=== PATIENT | male | born 1960 | race Caucasian/White ===

== ENCOUNTER 2019-01-31 13:22 | Emergency (ER) | payer OTHER ==
[~2019-01-31] VITALS: Ht 188 cm; Wt 93.0 kg
[~2019-01-31 13:22] MED LIST: ALBIPROI INH; ASPI81EC PO; BUSP15 PO; BUSPAR; CLON.5 PO; Cipro500 MG PO; DULO30 PO; IBUP600 PO; LISI5 PO; LOSARTAN; MECL25 PO; NAPR500 PO; NIAC250ER PO; NITR.4SL SL; NORTRIPTYLLINE; Omeprazole20 M1; TOCO1000 PO; TRAM50 PO; VARE1 PO
[2019-01-31] MEDS ORDERED: BUSP10 PO (13:47)
[2019-01-31] MEDS ORDERED: Neurontin 100100 MG PO (13:47)
[2019-01-31] MEDS ORDERED: OMEPRAZOLE20 MG PO (13:47)
[2019-01-31] MEDS ORDERED: LOSARTAN-HCTZ1 EAC1 PO (13:47)
[2019-01-31] MEDS ORDERED: Nortriptyline H50 MG PO (13:48)
[2019-01-31] MEDS ORDERED: POLY500 PO (13:49)
[2019-01-31] MEDS ORDERED: FISH OIL 1,001000 MG PO (13:49)
[2019-01-31] MEDS ORDERED: DICL75ER PO (13:49)
[2019-01-31] MEDS ORDERED: [UNRECOGNIZED DRUG - OTHER] PO (13:49)
[2019-01-31 14:03] LABS: BASOPHILS ABSOLUTE AUTO 0.09 K/mm3 (0.00-0.23); BASOPHILS PERCENT AUTO 1 % (0-2); EOSINOPHILS ABSOLUTE AUTO 0.13 K/mm3 (0.00-0.68); EOSINOPHILS PERCENT AUTO 2 % (0-6); Hematocrit 44.4 % (37.0-53.0); Hemoglobin 14.7 g/dL (13.5-17.5); IMMATURE GRAN ABSOLUTE AUTO 0.01 K/mm3 (0.00-0.10); IMMATURE GRAN PERCENT AUTO 0 % (0-1); LYMPHOCYTES ABSOLUTE AUTO 2.06 K/mm3 (0.84-5.20); LYMPHOCYTES PERCENT AUTO 25 % (21-46); MONOCYTES ABSOLUTE AUTO 0.53 K/mm3 (0.16-1.47); MONOCYTES PERCENT AUTO 6 % (4-13); Mean Corpuscular HGB 27.1 pg (26.0-34.0); Mean Corpuscular HGB Conc 33.1 g/dL (31.5-36.5); Mean Corpuscular Volume 82 fL (80-100); Mean Platelet Volume 10.6 fL (9.1-12.4); NEUTROPHILS ABSOLUTE AUTO 5.55 K/mm3 (1.96-9.15); NEUTROPHILS PERCENT AUTO 66 % (41-73); Platelet Count 317 K/mm3 (150-400); RDW Standard Deviation 41.4 fL (35.1-46.3); Red Blood Cell Count 5.42 M/mm3 (4.30-5.90); White Blood Cell Count 8.37 K/mm3 (4.00-11.30)
[2019-01-31 14:22] LABS: Alanine Aminotransfer (ALT/SGP 62 U/L (12-78); Albumin, Blood 4.2 g/dL (3.4-5.0); Albumin/Globulin Ratio 1.2 (0.8-1.8); Alk Phos 102 U/L (50-136); Anion Gap 6 mmol/L (6-16); Aspartate Aminotrans (AST/SGOT 22 U/L (12-37); Bilirubin, Total 0.3 mg/dL (0.1-1.0); Blood Urea Nitrogen 12 mg/dL (8-24); Bun/Creatinine Ratio 11.7 (12.0-20.0); CO2, Blood 27 mmol/L (21-32); Calcium, Blood 9.2 mg/dL (8.5-10.1); Chloride, Blood 107 mmol/L (98-108); Creatinine, Blood 1.03 mg/dL (0.60-1.20); Globulin, Blood 3.4 g/dL (2.2-4.0); Glomerular Filtration Rate >60 (60-); Glucose, Blood 87 mg/dL (70-99); Potassium, Blood 3.9 mmol/L (3.5-5.5); Sodium, Blood 140 mmol/L (136-145); Total Protein, Blood 7.6 g/dL (6.4-8.2); Troponin I <0.015 ng/mL (0.000-0.040)
[2019-01-31] MEDS ORDERED: Nitrostat0.4 MG SL (16:35)
== END 2019-01-31 16:48 | disposition home or self-care (01) ==
LOC: ER 13:22
PROVIDERS: Physician Assistant
DX: R20.0 Anesthesia of skin (principal); I10 Essential (primary) hypertension; F32.9 Major depressive disorder, single episode, unspecified; F17.210 Nicotine dependence, cigarettes, uncomplicated; Z88.0 Allergy status to penicillin; Z88.2 Allergy status to sulfonamides; Z91.048 Other nonmedicinal substance allergy status; Z88.8 Allergy status to other drugs, medicaments and biological substances; Z79.899 Other long term (current) drug therapy; Z79.82 Long term (current) use of aspirin
CPT/HCPCS: 36415; 71046; 80053; 84484; 85025; 93005; 93010; 96360; 96361; 99285-25; J7030

== ENCOUNTER 2019-06-24 17:58 | Observation (INO) | payer OTHER ==
[~2019-06-24] VITALS: Ht 182.9 cm; Wt 99.3 kg
[~2019-06-24 17:58] MED LIST changes: -ASPI81EC PO; -DULO30 PO; +FISH OIL 1,001000 MG PO; -NITR.4SL SL; +Nitrostat0.4 MG SL; +POLY500 PO; +[UNRECOGNIZED DRUG - OTHER] PO
[2019-06-24 18:20] LABS: BASOPHILS ABSOLUTE AUTO 0.09 K/mm3 (0.00-0.23); BASOPHILS PERCENT AUTO 1 % (0-2); EOSINOPHILS ABSOLUTE AUTO 0.12 K/mm3 (0.00-0.68); EOSINOPHILS PERCENT AUTO 1 % (0-6); Hematocrit 43.2 % (37.0-53.0); Hemoglobin 14.3 g/dL (13.5-17.5); IMMATURE GRAN ABSOLUTE AUTO 0.02 K/mm3 (0.00-0.10); IMMATURE GRAN PERCENT AUTO 0 % (0-1); LYMPHOCYTES ABSOLUTE AUTO 1.91 K/mm3 (0.84-5.20); LYMPHOCYTES PERCENT AUTO 22 % (21-46); MONOCYTES ABSOLUTE AUTO 0.47 K/mm3 (0.16-1.47); MONOCYTES PERCENT AUTO 5 % (4-13); Mean Corpuscular HGB 27.7 pg (26.0-34.0); Mean Corpuscular HGB Conc 33.1 g/dL (31.5-36.5); Mean Corpuscular Volume 84 fL (80-100); Mean Platelet Volume 10.1 fL (9.1-12.4); NEUTROPHILS PERCENT AUTO 70 % (41-73); Platelet Count 316 K/mm3 (150-400); RDW Coefficient Variation 12.7 % (11.7-14.2); RDW Standard Deviation 38.7 fL (35.1-46.3); Red Blood Cell Count 5.17 M/mm3 (4.30-5.90); White Blood Cell Count 8.71 K/mm3 (4.00-11.30)
[2019-06-24 18:37] LABS: Alanine Aminotransfer (ALT/SGP 47 U/L (12-78); Albumin, Blood 3.9 g/dL (3.4-5.0); Albumin/Globulin Ratio 1.1 (0.8-1.8); Alk Phos 92 U/L (50-136); Anion Gap 6 mmol/L (6-16); Aspartate Aminotrans (AST/SGOT 21 U/L (12-37); Bilirubin, Total 0.4 mg/dL (0.1-1.0); Blood Urea Nitrogen 14 mg/dL (8-24); Bun/Creatinine Ratio 13.5 (12.0-20.0); CO2, Blood 26 mmol/L (21-32); Chloride, Blood 105 mmol/L (98-108); Creatinine, Blood 1.04 mg/dL (0.60-1.20); Globulin, Blood 3.5 g/dL (2.2-4.0); Glomerular Filtration Rate >60 (60-); Glucose, Blood 106 mg/dL (70-99); Potassium, Blood 3.7 mmol/L (3.5-5.5); Sodium, Blood 137 mmol/L (136-145); Total Protein, Blood 7.4 g/dL (6.4-8.2); Troponin I <0.015 ng/mL (0.000-0.040)
[2019-06-24] MEDS ORDERED: DULO30 PO (19:34)
[2019-06-24] MEDS ORDERED: Aspir 8181 MG PO (19:35)
[2019-06-24] MEDS ORDERED: NITR.4SL SL (19:36)
[2019-06-24] MEDS ORDERED: GABA300 PO (19:36)
[2019-06-24] MEDS ORDERED: LOSA50 PO (19:37)
[2019-06-24] MEDS ORDERED: OMEPRAZOLE20 MG PO (19:37)
[2019-06-24] MEDS ORDERED: Nortriptyline H50 MG PO (19:38)
[2019-06-24] MEDS ORDERED: DICL75ER PO (19:38)
[2019-06-24] MEDS ORDERED: BUSP10 PO ×2 (19:38→19:39)
[2019-06-24] MEDS ORDERED: HYDCHL25 PO (19:39)
[2019-06-24] MEDS ORDERED: ATOR40TA PO (19:40)
[2019-06-24] MEDS ORDERED: Butalbital-Asa1 EAC1 PO (19:41)
[2019-06-24 20:20] LABS: CHOL/HDL RATIO 6.9; Cholesterol 241 mg/dL (50-200); HDL Cholesterol 35 mg/dL (>39); LDL/HDL RATIO 4.3; Low Density Lipoprotein Chol 149 mg/dL (0-110); Triglycerides 284 mg/dL (30-160); Very Low Density Lipoprot Chol 56 mg/dL (6-32)
[2019-06-24 20:37] LABS: Source, Urine Voided
[2019-06-24 20:48] LABS: Bilirubin, Urine Neg (Neg); Blood, Urine Neg (Neg); Glucose Qualitative, Urine Neg (Neg); Ketones, Urine Neg (Neg); Leukocyte Esterase, Urine Neg (Neg); Nitrite, Urine Neg (Neg); Protein, Urine Neg (Neg); Specific Gravity, Urine 1.015 (1.003-1.022); Urobilinogen, Urine NORM (Normal)
[2019-06-24 20:49] LABS: Appearance, Urine Clear (Clear); Color, Urine Yellow (P-Yellow)
--- NOTE | 2019-06-25 12:31 | NUR ---
Echocardiogram completed.
--- NOTE | 2019-06-25 13:02 | NUR ---
1300 PATIENT UP TO THE RESTROOM, VOIDED, ASSISTED WITH PATIENT PARTIALLY DRESSING SINCE HE IS LIMITED WITH NO USE OF THE RIGHT ARM AT THIS TIME. PATIENT BACK TO RECLINER AND BACK ON THE MONITOR.
[2019-06-25] MEDS ORDERED: METO50ER PO (13:46)
--- NOTE | 2019-06-25 15:12 | NUR ---
PT DRESSED, IV DC'D INTACT, R RADIAL TR BAND REMOVED, DRESSING PLACED, R WRIST SPLINT PLACED, PT DC'D BY WC BY THIS RN WITH FAMILY DRIVING PT HOME
== END 2019-06-25 10:28 | disposition home or self-care (01) ==
LOC: ER 17:58 → ERHOLD 17:59
PROVIDERS: Emergency Medicine; ADMIT Family Medicine
PROC: B2151ZZ Fluoroscopy of Left Heart using Low Osmolar Contrast (ICD-10-PCS; principal; 2019-06-25)
PROC: B2111ZZ Fluoroscopy of Multiple Coronary Arteries using Low Osmolar Contrast (ICD-10-PCS; principal; 2019-06-25)
PROC: 4A023N7 Measurement of Cardiac Sampling and Pressure, Left Heart, Percutaneous Approach (ICD-10-PCS; principal; 2019-06-25)
DX: I25.110 Atherosclerotic heart disease of native coronary artery with unstable angina pectoris (principal); E78.5 Hyperlipidemia, unspecified; M79.7 Fibromyalgia; G62.9 Polyneuropathy, unspecified; I10 Essential (primary) hypertension; K21.9 Gastro-esophageal reflux disease without esophagitis; G43.109 Migraine with aura, not intractable, without status migrainosus; E78.00 Pure hypercholesterolemia, unspecified; F41.9 Anxiety disorder, unspecified; F32.9 Major depressive disorder, single episode, unspecified; Z79.1 Long term (current) use of non-steroidal anti-inflammatories (NSAID); Z79.82 Long term (current) use of aspirin; Z79.899 Other long term (current) drug therapy; Z87.891 Personal history of nicotine dependence; Z88.0 Allergy status to penicillin; Z88.2 Allergy status to sulfonamides; Z88.3 Allergy status to other anti-infective agents; Z88.8 Allergy status to other drugs, medicaments and biological substances; Z91.048 Other nonmedicinal substance allergy status
CPT/HCPCS: 36415; 71045; 80053; 80061; 81003; 83880; 84484; 85025; 85347; 85730; 93005; 93010; 93308; 93321; 93458; 93571; 96361; 96365; 96366; 96375; 99152; 99153; 99285-25; A9270; A9270-GY; C1769; C1887; C1894; G0378; J0171; J1200; J1644; J2250; J2405; J3010; J7030; J7512; Q9967

== ENCOUNTER 2020-01-05 05:53 | Day surgery (SDC) | payer OTHER ==
[~2020-01-05] VITALS: Ht 185.4 cm; Wt 104.0 kg
[~2020-01-05 05:53] MED LIST changes: +AMLO10 PO; +ATOR40TA PO; +Aspir 8181 MG PO; +BUSP10 PO; +Butalbital-Asa1 EAC1 PO; +DIAZ10; +DICL75ER PO; +DULO30 PO; +GABA300; +GABA300 PO; +HYDCHL25 PO; +LOSA50 PO; +METO50ER PO; +NITR.4SL SL; +Nortriptyline H50 MG PO; +OMEP20ER PO; +OMEPRAZOLE20 MG PO
--- NOTE | 2020-01-05 17:33 | NUR ---
SHIFT NOTE PT [facility]IVED [facility] THIS AFTERNOON POST PACER ICD PLACEMENT TO LT CHEST WALL. PT IS SLING. PT REPORTS INTCHING TO SITE, SOME REDNESS NOTED PT REPORTS HX OF TAPE ALLERGY, DR WATERMAN IS CONSULTED ABOUT CHANGING DRESSING, DRESSING IS CHANGED WITHOUT ANY COMPLICATIONS. PT HAS REQUIRED PAIN MEDCIATION X2 FOR THIS SHIFT FOR ACHING PAIN. VSS. PT 100% PACED AT 60BPM ON MONITOR
--- NOTE | 2020-01-06 06:02 | NUR ---
SHIFT SUMMARY PT WAS EXPERIANCING CHF SYMPTOMS WITH 4+ EDEMA IN LOWER RIGHT LEG, LEFT LEG WAS AKA. ARMS SHOWED 3+ PITTING EDEMA, ALL EXTREMITIES WERE COOL TO TOUCH. MOVEMENT IN LEG WAS SIGNIFICANTLY LIMITED, ULCERS ON RIGHT FOOT. PT HAD ELEVATED BP BUT WAS CORRECTED WITH ORDERED MEDS. PT WAS ON BIPAP SATTING AROUND 85-90%, SWITCHED TO NC AT 2LPM AND SATS REMAINED AROUND 95%. PT STATED PAIN ON RIGHT LEG AT IO SITE. PT WAS ABLE TO EAT CRACKERS AND A SANDWICH, DIET WAS ADVANCED. BED IN LOWEST POSITION, CALL LIGHT IN REACH. WILL CONTINUE TO MONITOR UNTIL SHIFT CHANGE.
--- NOTE | 2020-01-06 06:22 | NUR ---
SHIFT SUMMARY PT WAS STABLE POST DUAL CHAMBER PACER PLACED IN PCU, PT RHYTHM WAS AROUND 75BPM AND PACED T/O SHIFT. PT STATED ITCHING AROUND INCISION SITE DUE TO SENSITIVITY FROM TAPE/ADHESIVE. DRESSING WAS RECENTLY CHANGED AND ITCHING SUBSIDED MILDLY AND PT RECIEVED BENYDRYL AND ITCHING STOPPED PER PT. PT STATED MILD PAIN AT INCISION SITE WITH INCREASED PAIN WITH MOVEMENT. DRESSING REMAIND CLEANDRY AND INTACT T/O SHIFT. BED IN LOWEST POSITION, CALL LIGHT WITHIN REACH, WILL CONTINUE TO MONITOR UNTIL SHIFT CHANGE.
[2020-01-06] MEDS ORDERED: Norco 5-325 Ta1 EACH PO (13:04)
== END 2020-01-06 13:37 | disposition home or self-care (01) ==
LOC: MHTC 05:53 → PCU 08:53 → MHTC 01-06 13:37
DX: I49.8 Other specified cardiac arrhythmias (principal); R55 Syncope and collapse; I44.1 Atrioventricular block, second degree; Z88.0 Allergy status to penicillin; Z88.2 Allergy status to sulfonamides; Z88.8 Allergy status to other drugs, medicaments and biological substances; Z91.041 Radiographic dye allergy status; Z91.040 Latex allergy status; Z87.891 Personal history of nicotine dependence; E78.5 Hyperlipidemia, unspecified; K21.9 Gastro-esophageal reflux disease without esophagitis; I11.9 Hypertensive heart disease without heart failure; F32.9 Major depressive disorder, single episode, unspecified; F41.9 Anxiety disorder, unspecified; Z79.899 Other long term (current) drug therapy; I47.1 Supraventricular tachycardia; I25.10 Atherosclerotic heart disease of native coronary artery without angina pectoris
CPT/HCPCS: 33249; 71045; 71046; 76937; 99152; 99153; A9270-GY; C1721; C1894; C1895; C1898; J1200; J1644; J1720; J2250; J3010; J3370; J7030; J7040; J7050; Q0163

== ENCOUNTER 2021-06-06 13:33 | Emergency (ER) | payer OTHER ==
[~2021-06-06] VITALS: Ht 185.4 cm; Wt 99.8 kg
[~2021-06-06 13:33] MED LIST changes: +Norco 5-325 Ta1 EACH PO
[2021-06-06 14:01] LABS: BASOPHILS ABSOLUTE AUTO 0.07 K/mm3 (0.00-0.23); BASOPHILS PERCENT AUTO 1 % (0-2); EOSINOPHILS ABSOLUTE AUTO 0.13 K/mm3 (0.00-0.68); EOSINOPHILS PERCENT AUTO 2 % (0-6); Hematocrit 44.9 % (37.0-53.0); Hemoglobin 14.6 g/dL (13.5-17.5); IMMATURE GRAN PERCENT AUTO 0 % (0-1); LYMPHOCYTES ABSOLUTE AUTO 1.82 K/mm3 (0.84-5.20); LYMPHOCYTES PERCENT AUTO 33 % (21-46); MONOCYTES ABSOLUTE AUTO 0.41 K/mm3 (0.16-1.47); MONOCYTES PERCENT AUTO 8 % (4-13); Mean Corpuscular HGB Conc 32.5 g/dL (31.5-36.5); Mean Corpuscular Volume 83 fL (80-100); Mean Platelet Volume 11.4 fL (9.1-12.4); NEUTROPHILS ABSOLUTE AUTO 3.02 K/mm3 (1.96-9.15); NEUTROPHILS PERCENT AUTO 55 % (41-73); Platelet Count 258 K/mm3 (150-400); RDW Coefficient Variation 13.6 % (11.7-14.2); RDW Standard Deviation 41.1 fL (35.1-46.3); Red Blood Cell Count 5.41 M/mm3 (4.30-5.90); White Blood Cell Count 5.45 K/mm3 (4.00-11.30)
[2021-06-06 14:19] LABS: Alanine Aminotransfer (ALT/SGP 32 U/L (12-78); Albumin, Blood 4.2 g/dL (3.4-5.0); Albumin/Globulin Ratio 1.2 (0.8-1.8); Alk Phos 97 U/L (50-136); Anion Gap 4 mmol/L (6-16); Aspartate Aminotrans (AST/SGOT 11 U/L (12-37); Bilirubin, Total 0.4 mg/dL (0.1-1.0); Blood Urea Nitrogen 19 mg/dL (8-24); Bun/Creatinine Ratio 18.6 (12.0-20.0); CO2, Blood 23 mmol/L (21-32); Calcium, Blood 9.2 mg/dL (8.5-10.1); Chloride, Blood 112 mmol/L (98-108); Creatinine, Blood 1.02 mg/dL (0.60-1.20); Globulin, Blood 3.5 g/dL (2.2-4.0); Glomerular Filtration Rate >60 (60-); Glucose, Blood 104 mg/dL (70-99); Sodium, Blood 139 mmol/L (136-145); Total Protein, Blood 7.7 g/dL (6.4-8.2)
[2021-06-06 14:53] LABS: Source, Urine Clean Catch
[2021-06-06 15:12] LABS: Appearance, Urine Clear (Clear); Bilirubin, Urine Neg (Neg); Blood, Urine Neg (Neg); Color, Urine Yellow (P-Yellow); Glucose Qualitative, Urine Neg (Neg); Ketones, Urine Neg (Neg); Leukocyte Esterase, Urine Neg (Neg); Nitrite, Urine Neg (Neg); Protein, Urine Neg (Neg); Urobilinogen, Urine NORM (Normal)
== END 2021-06-06 16:14 | disposition home or self-care (01) ==
LOC: ER 13:33
PROVIDERS: Physician Assistant
DX: R10.9 Unspecified abdominal pain (principal); I10 Essential (primary) hypertension; E78.00 Pure hypercholesterolemia, unspecified; I25.10 Atherosclerotic heart disease of native coronary artery without angina pectoris; Z87.891 Personal history of nicotine dependence; Z79.82 Long term (current) use of aspirin; Z79.899 Other long term (current) drug therapy
CPT/HCPCS: 36415; 74176; 80053; 81003; 83690; 85025; 96374; 96375; 99284-25; J2270; J2405; J7030

== ENCOUNTER 2022-02-12 12:49 | Observation (INO) | payer OTHER ==
[~2022-02-12] VITALS: Ht 185.4 cm; Wt 98.9 kg
[~2022-02-12 12:49] MED LIST changes: -LOSA50 PO; +LOSARTAN POTAS100 M1 PO
[2022-02-12 13:38] LABS: BASOPHILS ABSOLUTE AUTO 0.06 K/mm3 (0.00-0.23); BASOPHILS PERCENT AUTO 1 % (0-2); EOSINOPHILS ABSOLUTE AUTO 0.13 K/mm3 (0.00-0.68); EOSINOPHILS PERCENT AUTO 2 % (0-6); Hematocrit 42.8 % (37.0-53.0); Hemoglobin 14.1 g/dL (13.5-17.5); IMMATURE GRAN ABSOLUTE AUTO 0.02 K/mm3 (0.00-0.10); IMMATURE GRAN PERCENT AUTO 0 % (0-1); LYMPHOCYTES ABSOLUTE AUTO 1.49 K/mm3 (0.84-5.20); LYMPHOCYTES PERCENT AUTO 17 % (21-46); MONOCYTES ABSOLUTE AUTO 0.44 K/mm3 (0.16-1.47); MONOCYTES PERCENT AUTO 5 % (4-13); Mean Corpuscular HGB 26.7 pg (26.0-34.0); Mean Corpuscular HGB Conc 32.9 g/dL (31.5-36.5); Mean Corpuscular Volume 81 fL (80-100); Mean Platelet Volume 10.6 fL (9.1-12.4); NEUTROPHILS ABSOLUTE AUTO 6.55 K/mm3 (1.96-9.15); NEUTROPHILS PERCENT AUTO 75 % (41-73); Platelet Count 281 K/mm3 (150-400); RDW Coefficient Variation 14.1 % (11.7-14.2); RDW Standard Deviation 41.1 fL (35.1-46.3); Red Blood Cell Count 5.28 M/mm3 (4.30-5.90); White Blood Cell Count 8.69 K/mm3 (4.00-11.30)
[2022-02-12 14:09] LABS: Albumin, Blood 3.9 g/dL (3.4-5.0); Albumin/Globulin Ratio 1.2 (0.8-1.8); Bilirubin, Total 0.4 mg/dL (0.1-1.0); Bun/Creatinine Ratio 18.5 (12.0-20.0); Calcium, Blood 9.3 mg/dL (8.5-10.1); Creatinine, Blood 0.92 mg/dL (0.60-1.20); Globulin, Blood 3.2 g/dL (2.2-4.0); Potassium, Blood 3.9 mmol/L (3.5-5.5); Total Protein, Blood 7.1 g/dL (6.4-8.2)
[2022-02-12] MEDS ORDERED: ATOMOXETINE HCL80 M3 PO ×2 (17:17→17:18)
[2022-02-12] MEDS ORDERED: TAMSULOSIN HCL0.4 M1 PO (17:17)
[2022-02-12] MEDS ORDERED: HYDHCL25 PO ×2 (17:17→20:01)
[2022-02-12] MEDS ORDERED: FINA5 PO (17:17)
[2022-02-12] MEDS ORDERED: DRAMAMINE25 M3 PO (17:18)
[2022-02-12] MEDS ORDERED: CENTRUM SILVER1 EAC2 PO (17:19)
[2022-02-12] MEDS ORDERED: FLUTICASONE-SA1 EAC1 INH (17:19)
[2022-02-12] MEDS ORDERED: Vitamin B Comple1 EA PO (17:19)
[2022-02-12] MEDS ORDERED: ALBU2.5V5 INH (17:20)
--- NOTE | 2022-02-12 20:08 | NUR ---
ADMISSION : PATIENT IS RECIEVED FROM ER VIA STRETCHER. REPORTS SLIGHT CHEST PRESSURE. PATIENT IS ORIENTED TO ROOM AND CALL COTO. VSS, LAB IS IN TO DRAW TROP. PATIENT IS REQUESTING DINNER.
--- NOTE | 2022-02-13 05:51 | NUR ---
SHIFT SUMMARY: PATIENT CONTINUES TO REPORT CHEST DISCOMFORT 3/10, DENIES NEED OF PAIN MEDICATION. INDEPENDANT IN THE ROOM WITH A STEADY GAIT. NPO SINCE MIDNIGHT FOR POSSIBLE FURTHER TESTING. TELI. READING IS PACED IN THE 60'S WITH 1 DEGREE BLOCK.
[2022-02-13 05:58] LABS: BASOPHILS ABSOLUTE AUTO 0.07 K/mm3 (0.00-0.23); BASOPHILS PERCENT AUTO 1 % (0-2); EOSINOPHILS ABSOLUTE AUTO 0.16 K/mm3 (0.00-0.68); EOSINOPHILS PERCENT AUTO 2 % (0-6); Hematocrit 41.4 % (37.0-53.0); Hemoglobin 13.6 g/dL (13.5-17.5); IMMATURE GRAN ABSOLUTE AUTO 0.02 K/mm3 (0.00-0.10); IMMATURE GRAN PERCENT AUTO 0 % (0-1); LYMPHOCYTES ABSOLUTE AUTO 1.86 K/mm3 (0.84-5.20); LYMPHOCYTES PERCENT AUTO 24 % (21-46); MONOCYTES ABSOLUTE AUTO 0.59 K/mm3 (0.16-1.47); MONOCYTES PERCENT AUTO 8 % (4-13); Mean Corpuscular HGB 26.5 pg (26.0-34.0); Mean Corpuscular HGB Conc 32.9 g/dL (31.5-36.5); Mean Corpuscular Volume 81 fL (80-100); Mean Platelet Volume 10.3 fL (9.1-12.4); NEUTROPHILS ABSOLUTE AUTO 5.13 K/mm3 (1.96-9.15); NEUTROPHILS PERCENT AUTO 66 % (41-73); Platelet Count 271 K/mm3 (150-400); RDW Coefficient Variation 13.8 % (11.7-14.2); RDW Standard Deviation 40.2 fL (35.1-46.3); Red Blood Cell Count 5.13 M/mm3 (4.30-5.90); White Blood Cell Count 7.83 K/mm3 (4.00-11.30)
[2022-02-13 06:06] LABS: Albumin, Blood 3.5 g/dL (3.4-5.0); Albumin/Globulin Ratio 1.1 (0.8-1.8); Bilirubin, Total 0.4 mg/dL (0.1-1.0); Bun/Creatinine Ratio 18.7 (12.0-20.0); Calcium, Blood 9.1 mg/dL (8.5-10.1); Creatinine, Blood 0.96 mg/dL (0.60-1.20); Globulin, Blood 3.1 g/dL (2.2-4.0); Potassium, Blood 4.1 mmol/L (3.5-5.5); Total Protein, Blood 6.6 g/dL (6.4-8.2)
--- NOTE | 2022-02-13 17:54 | NUR ---
DISCHARGE PT A&OX4 @ TIME OF DC. DENIES CP/PRESSURE. TOLERATING PO INTAKE, RA. PROVIDED W/ WRITTEN AND VERBAL INFO, PT VERBALIZED UNDERSTANDING. IV AND TELLY REMOVED. [facility] DAUGHTER PROVIDING TRANSPORT. NO NEW MEDS PLAN TO FOLLOW UP W/ CARDIOLOGY.
== END 2022-02-13 17:52 | disposition home or self-care (01) ==
LOC: ER 12:49 → MEDS 12:50
PROVIDERS: Physician Assistant; ADMIT Student in an Organized Health Care Education/Training Program
DX: R07.89 Other chest pain (principal); K21.9 Gastro-esophageal reflux disease without esophagitis; I10 Essential (primary) hypertension; E78.5 Hyperlipidemia, unspecified; F41.9 Anxiety disorder, unspecified; M79.7 Fibromyalgia; Z95.810 Presence of automatic (implantable) cardiac defibrillator; F17.200 Nicotine dependence, unspecified, uncomplicated; I49.8 Other specified cardiac arrhythmias
CPT/HCPCS: 36415; 71045; 78452; 80053; 82947; 83880; 84484; 85025; 93005; 93010; 93017; 94760; 96372; A9270; A9500; G0378; J0706; J1650; J2785

== ENCOUNTER → 2023-10-21 | Outpatient (CLI) | payer OTHER ==
[~2023-10-21] MED LIST changes: +ALBU2.5V5 INH; +ATOMOXETINE HCL80 M3 PO; +CENTRUM SILVER1 EAC2 PO; +DRAMAMINE25 M3 PO; +FINA5 PO; +FLUTICASONE-SA1 EAC1 INH; +HYDHCL25 PO; +TAMSULOSIN HCL0.4 M1 PO; +Vitamin B Comple1 EA PO
[2023-10-21 19:29] LABS: BASOPHILS ABSOLUTE AUTO 0.07 K/mm3 (0.00-0.23); BASOPHILS PERCENT AUTO 1 % (0-2); EOSINOPHILS ABSOLUTE AUTO 0.08 K/mm3 (0.00-0.68); EOSINOPHILS PERCENT AUTO 1 % (0-6); Hematocrit 41.8 % (37.0-53.0); Hemoglobin 13.5 g/dL (13.5-17.5); IMMATURE GRAN ABSOLUTE AUTO 0.02 K/mm3 (0.00-0.10); IMMATURE GRAN PERCENT AUTO 0 % (0-1); LYMPHOCYTES ABSOLUTE AUTO 1.38 K/mm3 (0.84-5.20); LYMPHOCYTES PERCENT AUTO 24 % (21-46); MONOCYTES PERCENT AUTO 7 % (4-13); Mean Corpuscular HGB 26.5 pg (26.0-34.0); Mean Corpuscular HGB Conc 32.3 g/dL (31.5-36.5); Mean Corpuscular Volume 82 fL (80-100); Mean Platelet Volume 10.3 fL (9.1-12.4); NEUTROPHILS ABSOLUTE AUTO 3.82 K/mm3 (1.96-9.15); NEUTROPHILS PERCENT AUTO 66 % (41-73); Platelet Count 321 K/mm3 (150-400); RDW Coefficient Variation 14.3 % (11.7-14.2); RDW Standard Deviation 42.2 fL (35.1-46.3); White Blood Cell Count 5.77 K/mm3 (4.00-11.30)
[2023-10-21 19:41] LABS: Albumin, Blood 4.1 g/dL (3.4-5.0); Albumin/Globulin Ratio 1.2 (0.8-1.8); Bilirubin, Total 0.5 mg/dL (0.1-1.0); Bun/Creatinine Ratio 10.6 (12.0-20.0); Calcium, Blood 9.3 mg/dL (8.5-10.1); Creatinine, Blood 1.04 mg/dL (0.60-1.20); Globulin, Blood 3.5 g/dL (2.2-4.0); Potassium, Blood 3.9 mmol/L (3.5-5.5); Total Protein, Blood 7.6 g/dL (6.4-8.2)
[2023-10-23 18:57] LABS: HIV 1,2 COMBO ANTIGEN/ANTIBODY Negative (Negative)
== END ==
LOC: LAB SHORT 18:46 → LAB 18:46
PROVIDERS: Family Medicine
DX: I10 Essential (primary) hypertension (principal); R09.89 Other specified symptoms and signs involving the circulatory and respiratory systems; Z11.4 Encounter for screening for human immunodeficiency virus [HIV]
CPT/HCPCS: 80053; 85025; 87389

== ENCOUNTER 2023-11-24 16:39 | Emergency (ER) | payer OTHER ==
[~2023-11-24] VITALS: Ht 185.4 cm; Wt 95.2 kg
[2023-11-24 17:06] LABS: BASOPHILS PERCENT AUTO 1 % (0-2); EOSINOPHILS ABSOLUTE AUTO 0.15 K/mm3 (0.00-0.68); EOSINOPHILS PERCENT AUTO 2 % (0-6); Hematocrit 42.7 % (37.0-53.0); IMMATURE GRAN ABSOLUTE AUTO 0.01 K/mm3 (0.00-0.10); IMMATURE GRAN PERCENT AUTO 0 % (0-1); LYMPHOCYTES ABSOLUTE AUTO 1.58 K/mm3 (0.84-5.20); LYMPHOCYTES PERCENT AUTO 23 % (21-46); MONOCYTES ABSOLUTE AUTO 0.55 K/mm3 (0.16-1.47); MONOCYTES PERCENT AUTO 8 % (4-13); Mean Corpuscular HGB 26.7 pg (26.0-34.0); Mean Corpuscular HGB Conc 32.8 g/dL (31.5-36.5); Mean Corpuscular Volume 82 fL (80-100); Mean Platelet Volume 10.9 fL (9.1-12.4); NEUTROPHILS ABSOLUTE AUTO 4.52 K/mm3 (1.96-9.15); NEUTROPHILS PERCENT AUTO 65 % (41-73); Platelet Count 275 K/mm3 (150-400); RDW Coefficient Variation 13.8 % (11.7-14.2); RDW Standard Deviation 41.4 fL (35.1-46.3); Red Blood Cell Count 5.24 M/mm3 (4.30-5.90); White Blood Cell Count 6.91 K/mm3 (4.00-11.30)
[2023-11-24 17:19] LABS: Albumin, Blood 4.1 g/dL (3.4-5.0); Albumin/Globulin Ratio 1.2 (0.8-1.8); Bilirubin, Total 0.5 mg/dL (0.1-1.0); Bun/Creatinine Ratio 12.7 (12.0-20.0); Creatinine, Blood 1.02 mg/dL (0.60-1.20); Globulin, Blood 3.4 g/dL (2.2-4.0); Potassium, Blood 4.2 mmol/L (3.5-5.5); Total Protein, Blood 7.5 g/dL (6.4-8.2)
[2023-11-24 18:00] VITALS: BP 173/100
== END 2023-11-24 18:08 | disposition home or self-care (01) ==
LOC: ER 16:39
PROVIDERS: Emergency Medicine
DX: R07.89 Other chest pain (principal); I10 Essential (primary) hypertension; E78.00 Pure hypercholesterolemia, unspecified; F17.210 Nicotine dependence, cigarettes, uncomplicated; Z79.899 Other long term (current) drug therapy; Z88.0 Allergy status to penicillin; Z88.2 Allergy status to sulfonamides; Z91.040 Latex allergy status; Z88.8 Allergy status to other drugs, medicaments and biological substances; Z91.048 Other nonmedicinal substance allergy status
CPT/HCPCS: 71045; 80053; 84484; 85025

== ENCOUNTER 2024-02-24 17:42 | Emergency (ER) | payer OTHER ==
[~2024-02-24] VITALS: Ht 185.4 cm; Wt 90.7 kg
[2024-02-24 18:30] LABS: Albumin/Globulin Ratio 1.1 (0.8-1.8); Bilirubin, Total 0.4 mg/dL (0.1-1.0); Bun/Creatinine Ratio 12.3 (12.0-20.0); Calcium, Blood 9.2 mg/dL (8.5-10.1); Creatinine, Blood 0.98 mg/dL (0.60-1.20); Globulin, Blood 3.7 g/dL (2.2-4.0); Potassium, Blood 3.9 mmol/L (3.5-5.5); Total Protein, Blood 7.7 g/dL (6.4-8.2)
[2024-02-24 18:52] LABS: BASOPHILS ABSOLUTE AUTO 0.08 K/mm3 (0.00-0.23); BASOPHILS PERCENT AUTO 1 % (0-2); EOSINOPHILS ABSOLUTE AUTO 0.09 K/mm3 (0.00-0.68); EOSINOPHILS PERCENT AUTO 1 % (0-6); Hematocrit 43.8 % (37.0-53.0); Hemoglobin 14.6 g/dL (13.5-17.5); IMMATURE GRAN ABSOLUTE AUTO 0.01 K/mm3 (0.00-0.10); IMMATURE GRAN PERCENT AUTO 0 % (0-1); LYMPHOCYTES ABSOLUTE AUTO 1.91 K/mm3 (0.84-5.20); LYMPHOCYTES PERCENT AUTO 23 % (21-46); MONOCYTES ABSOLUTE AUTO 0.56 K/mm3 (0.16-1.47); MONOCYTES PERCENT AUTO 7 % (4-13); Mean Corpuscular HGB 26.7 pg (26.0-34.0); Mean Corpuscular HGB Conc 33.3 g/dL (31.5-36.5); Mean Corpuscular Volume 80 fL (80-100); Mean Platelet Volume 10.2 fL (9.1-12.4); NEUTROPHILS ABSOLUTE AUTO 5.69 K/mm3 (1.96-9.15); NEUTROPHILS PERCENT AUTO 68 % (41-73); Platelet Count 289 K/mm3 (150-400); RDW Coefficient Variation 14.6 % (11.7-14.2); RDW Standard Deviation 42.5 fL (35.1-46.3); Red Blood Cell Count 5.47 M/mm3 (4.30-5.90); White Blood Cell Count 8.34 K/mm3 (4.00-11.30)
[2024-02-24 21:15] VITALS: BP 147/100
== END 2024-02-24 21:52 | disposition home or self-care (01) ==
LOC: ER 17:42
PROVIDERS: Physician Assistant
DX: R07.89 Other chest pain (principal); I10 Essential (primary) hypertension; E78.00 Pure hypercholesterolemia, unspecified; I49.8 Other specified cardiac arrhythmias; F17.210 Nicotine dependence, cigarettes, uncomplicated; Z95.810 Presence of automatic (implantable) cardiac defibrillator; Z88.0 Allergy status to penicillin; Z88.2 Allergy status to sulfonamides; Z88.8 Allergy status to other drugs, medicaments and biological substances; Z91.041 Radiographic dye allergy status; Z91.040 Latex allergy status; Z91.048 Other nonmedicinal substance allergy status; Z79.899 Other long term (current) drug therapy
CPT/HCPCS: 71046; 80053; 84484; 85025; 85379; 93005; 93010; 99284-25

== ENCOUNTER 2024-10-28 07:26 | Day surgery (SDC) | payer OTHER ==
[~2024-10-28] VITALS: Ht 185.4 cm; Wt 97.2 kg
[~2024-10-28 07:26] MED LIST changes: -AMLO10 PO; +ATOMOXETINE HCL80 M1 PO; +Amlodipine Bes2.5 MG PO; +BUPR150ER PO
[2024-10-28] MEDS ORDERED: Aspir 8181 MG PO (07:44)
[2024-10-28 07:49] VITALS: BP 138/94
--- NOTE | 2024-10-28 08:16 | NUR ---
10/28/24 0816 Josee Ro History, Chart, Medications and Allergies reviewed before start of procedure. MONITOR INTACT WITH CONTINUOUS PULSE OXIMETRY, CONTINUOUS END TITAL CO2, 3-LEAD EKG AND INTERMITTENT BLOOD PRESSURE. O2 VIA POM INTACT THROUGHOUT SEDATION/PROCEDURE. DR. LANDIN FOR MAC.
[2024-10-28 09:03] VITALS: BP 144/91
--- NOTE | 2024-10-28 09:22 | NUR ---
Discharge instructions reviewed with patient. Patient verbalizes understanding. Copy given to patient to take home. Patient States Post-Procedure ride home has been arranged. Discharged via wheelchair to private car for ride home.
== END 2024-10-28 09:25 | disposition home or self-care (01) ==
LOC: ORSCMMR 07:26 → ORD 08:30 → ORSCMMR 08:30
PROVIDERS: Internal Medicine Gastroenterology
PROC: 0DBL8ZX Excision of Transverse Colon, Via Natural or Artificial Opening Endoscopic, Diagnostic (ICD-10-PCS; principal; 2024-10-28 08:30)
PROC: 0DBM8ZX Excision of Descending Colon, Via Natural or Artificial Opening Endoscopic, Diagnostic (ICD-10-PCS; principal; 2024-10-28 08:30)
DX: Z12.11 Encounter for screening for malignant neoplasm of colon (principal); Z86.0100 Personal history of colon polyps, unspecified; D12.3 Benign neoplasm of transverse colon; D12.4 Benign neoplasm of descending colon; K57.30 Diverticulosis of large intestine without perforation or abscess without bleeding; I10 Essential (primary) hypertension; Z95.0 Presence of cardiac pacemaker; K21.9 Gastro-esophageal reflux disease without esophagitis; Z86.73 Personal history of transient ischemic attack (TIA), and cerebral infarction without residual deficits; Z79.899 Other long term (current) drug therapy; F17.290 Nicotine dependence, other tobacco product, uncomplicated
CPT/HCPCS: 88305; J2704; J7120